=== PATIENT | female | born 1985 | race African-American/Black ===

== ENCOUNTER 2018-03-16 14:21 | Emergency (ER) | payer BC ==
[2018-03-16 16:16] LABS: Absolute Lymphocytes (CBC) 2.8 K/uL (0.7-4.9); Absolute Monocytes 0.6 K/uL (0.1-1.3); Absolute Neutrophil 6.6 K/uL (1.8-8.0); Basophils % 0.5 % (0-1.3); Lymphocytes % 27.6 % (15.3-44.8); MPV 8.2 fL (7.6-11.3); Monocytes % 5.6 % (3.3-12.3); RBC Red Blood Cell Count 4.89 M/uL (3.86-4.86)
[2018-03-16 16:18] LABS: Protime INR 0.97
[2018-03-16 16:33] LABS: ALT/SGPT 35 U/L (12-78); AST/SGOT 21 U/L (15-37); Alkaline Phosphatase 79 U/L (45-117); BUN Blood Urea Nitrogen 8 mg/dL (7-18); Bicarbonate 27 mmol/L (21-32); Bilirubin Direct 0.1 mg/dL (0-0.2); Bilirubin Total 0.4 mg/dL (0.2-1.0); Glucose Level 108 mg/dL (74-106); Magnesium 2.2 mg/dL (1.8-2.4); NT PRO-BNP 13 pg/mL (<125); Protein, Total 7.9 g/dL (6.4-8.2); Sodium Level 139 mmol/L (136-145); Troponin (Emerg Dept Use Only) < 0.02 ng/mL (0.0-0.045)
--- NOTE | 2018-03-16 16:50 | RAD REPORT ---
EXAM DESCRIPTION: RAD - Chest Single View - 03/16/2018 4:24 pm CLINICAL HISTORY: CHEST PAIN Chest pain. COMPARISON: No comparisons FINDINGS: Portable technique limits examination quality. Interstitial lung markings are mildly prominent. The heart is upper limit of normal in size. No displ aced fractures. IMPRESSION: Mild interstitial pneumonitis versus interstitial pulmonary edema.
[2018-03-16] MEDS ORDERED: POTASSIUM 25 MEQ EFFERV TAB ONE (17:06)
--- NOTE | 2018-03-16 17:22 | EDPHYS ---
Physician Documentation [facility] Name: Mine Edwards Age: 32 yrs Sex: Female : 1985 Arrival Date: 03/16/2018 Time: 14:26 Bed 28 Private MD: ED Physician [employer] Dixon HPI: 03/16 16:00 This 32 yrs old Black Female presents to ER via Ambulatory with complaints of Chest pm1 pain. 16:00 The patient or guardian reports chest pain that is located primarily in the anterior pm1 aspect of left upper chest. The pain radiates to the left arm. Associated signs and symptoms: Pertinent positives: headache, shortness of breath, Pertinent negatives: abdominal pain, cough, diaphoresis, dizziness, near syncope, palpitations, syncope. The chest pain is described as burning. Duration: The patient or guardian reports a single episode, that is still ongoing. Modifying factors: The symptoms are alleviated by nothing. the symptoms are aggravated by cough, deep breath, palpation of area. Severity of pain: in the emergency department the pain is unchanged. The patient has not experienced similar symptoms in the past. The patient has not recently seen a physician. Onset 4 weeks ago. 16:00 Associated signs and symptoms: Pertinent positives: cough, post nasal drainage. 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 - Ebola Screening: : No symptoms or risks identified at this time. ROS: 16:00 Constitutional: Negative for fever, chills, and weight loss, Eyes: Negative for injury, pm1 pain, redness, and discharge. 16:00 Neck: Negative for injury, pain, and swelling. 16:00 Abdomen/GI: Negative for abdominal pain, nausea, vomiting, diarrhea, and constipation, Back: Negative for injury and pain. 16:00 : Negative for injury, bleeding, discharge, and swelling, MS/Extremity: Negative for injury and deformity, Skin: Negative for injury, rash, and discoloration. 16:00 Neuro: Negative for headache, weakness, numbness, tingling, and seizure. 16:00 ENT: Positive for sinus congestion, post nasal drainage. 16:00 Cardiovascular: Positive for chest pain, Negative for edema, orthopnea, palpitations, paroxysmal nocturnal dyspnea. 16:00 Respiratory: Positive for cough, shortness of breath, Negative for sputum production, wheezing. Exam: 16:00 Constitutional: This is a well developed, well nourished patient who is awake, alert, pm1 and in no acute distress. Head/Face: Normocephalic, atraumatic. Eyes: Pupils equal round and reactive to light, extra-ocular motions intact. Lids and lashes normal. Conjunctiva and sclera are non-icteric and not injected. Cornea within normal limits. Periorbital areas with no swelling, redness, or edema. ENT: Nares patent. No nasal discharge, no septal abnormalities noted. Tympanic membranes are normal and external auditory canals are clear. Oropharynx with no redness, swelling, or masses, exudates, or evidence of obstruction, uvula midline. Mucous membranes moist. Neck: Trachea midline, no thyromegaly or masses palpated, and no cervical lymphadenopathy. Supple, full range of motion without nuchal rigidity, or vertebral point tenderness. No Meningismus. Cardiovascular: Regular rate and rhythm with a normal S1 and S2. No gallops, murmurs, or rubs. Normal PMI, no JVD. No pulse deficits. 16:00 Respiratory: Lungs have equal breath sounds bilaterally, clear to auscultation and percussion. No rales, rhonchi or wheezes noted. No increased work of breathing, no retractions or nasal flaring. Abdomen/GI: Soft, non-tender, with normal bowel sounds. No distension or tympany. No guarding or rebound. No evidence of tenderness throughout. Skin: Warm, dry with normal turgor. Normal color with no rashes, no lesions, and no evidence of cellulitis. MS/ Extremity: Pulses equal, no cyanosis. Neurovascular intact. Full, normal range of motion. 16:00 Chest/axilla: Inspection: normal, Palpation: tenderness, that is mild, of the anterior aspect of left upper chest, that totally reproduces the patient's complaints. 16:00 Back: normal spinal alignment noted, muscle spasm, is appreciated in the left trapezius. 16:00 Neuro: Orientation: is normal, Motor: is normal, moves all fours, Sensation: is normal, no obvious gross deficits, Gait: is steady, at a normal pace, without difficulty. Vital Signs: 15:10 BP 158 / 112; Pulse 93; Resp 18; Temp 97.8; Pulse Ox 100% on R/A; Weight 95.25 kg; ph Height 5 ft. 0 in. (152.40 cm); 17:06 BP 159 / 106; Pulse 84; Resp 18; Pulse Ox 100% on R/A; Pain 10/10; mg2 15:10 Body Mass Index 41.01 (95.25 kg, 152.40 cm) ph MDM: 15:34 Patient medically screened. pm1 17:21 Data reviewed: vital signs. Data interpreted: Pulse oximetry: on room air is 100 %. pm1 Interpretation: normal. Counseling: I had a detailed discussion with the patient and/or guardian regarding: the historical points, exam findings, and any diagnostic results supporting the discharge/admit diagnosis, lab results, radiology results, the need for outpatient follow up, to return to the emergency department if symptoms worsen or persist or if there are any questions or concerns that arise at home. 17:22 Special discussion: I have referred the patient to see his PCP for further evaluation pm1 of high blood pressure. Start taking her blood pressure medications again. 03/16 15:45 Order name: Basic Metabolic Panel; Complete Time: 16:39 pm1 03/16 15:45 Order name: CBC with Diff; Complete Time: 16:39 pm1 03/16 15:45 Order name: LFT's; Complete Time: 16:39 pm1 03/16 15:45 Order name: Magnesium; Complete Time: 16:39 pm1 03/16 15:45 Order name: NT PRO-BNP; Complete Time: 16:39 pm1 03/16 15:45 Order name: PT-INR; Complete Time: 17:02 pm1 03/16 15:45 Order name: Troponin (emerg Dept Use Only); Complete Time: 16:39 pm1 03/16 15:45 Order name: XRAY Chest (1 view); Complete Time: 17:02 pm1 03/16 15:45 Order name: EKG; Complete Time: 15:45 pm1 03/16 15:45 Order name: Cardiac monitoring; Complete Time: 15:58 pm1 03/16 15:45 Order name: EKG - Nurse/Tech; Complete Time: 15:58 pm1 03/16 15:45 Order name: IV Saline Lock; Complete Time: 15:58 pm1 03/16 15:45 Order name: Labs collected and sent; Complete Time: 15:58 pm1 03/16 15:45 Order name: O2 Per Protocol; Complete Time: 15:58 pm1 03/16 15:45 Order name: O2 Sat Monitoring; Complete Time: 15:58 pm1 Administered Medications: 17:01 Drug: Potassium Effervescent Tablet 50 mEq Route: PO; mg2 17:37 Follow up: Response: No adverse reaction mg2 17:36 Drug: TORadol 30 mg Route: IVP; Site: left antecubital; mg2 17:36 Follow up: Response: No adverse reaction; Medication administered at discharge. mg2 17:36 Drug: Rocephin 1 grams Route: IV; Rate: calculated rate; Site: left antecubital; mg2 17:36 Follow up: Response: No adverse reaction; Medication administered at discharge.; IV mg2 Status: Completed infusion Disposition: 03/16/18 17:22 Discharged to Home. Impression: Pneumonitis, Chest pain, unspecified. - Condition is Stable. - Discharge Instructions: Nonspecific Chest Pain, Hypertension, How to Take Your Blood Pressure, [id number], Pneumonitis, Managing Your Hypertension. - Prescriptions for Naprosyn 500 mg Oral Tablet - take 1 tablet by ORAL route 2 times per day As needed take with food; 30 tablet. Zithromax Z- Rei 250 mg Oral Tablet - take 1 tablet by ORAL route as directed for 5 days Day 1 - take two (2) tablets one time. Day 2, 3, 4 , 5 take one (1) tablet once daily.; 6 tablet. - Medication Reconciliation Form, Thank You Letter, Antibiotic Education, Prescription Opioid Use form. - Follow up: Emergency Department; When: As needed; Reason: Worsening of condition. Follow up: Private Physician; When: 2 - 3 days; Reason: Recheck today's complaints, Continuance of care, Re-evaluation by your physician. - Problem is new. - Symptoms have improved. Addendum: 03/18/2018 15:31 Co-signature as Attending Physician, Felix merlos a2 Signatures: Dispatcher [employer] Romana Barros RN RN ph Adarsh Mcadams, SPEECH THERAPY DIRECTOR SPEECH THERAPY DIRECTOR pm1 Felix Dixon MD MD ma2 Tin Redmond, RN RN mg2 Corrections: (The following items were deleted from the chart) 03/16 17:38 17:22 03/16/2018 17:22 Discharged to Home. Impression: Pneumonitis; Chest pain, mg2 unspecified. Condition is Stable. Discharge Instructions: Pneumonitis. Forms are Medication Reconciliation Form, Thank You Letter, Antibiotic Education, Prescription Opioid Use. Follow up: Emergency Department; When: As needed; Reason: Worsening of condition. Follow up: Private Physician; When: 2 - 3 days; Reason: Recheck today's complaints, Continuance of care, Re-evaluation by your physician. Problem is new. Symptoms have improved. pm1
--- NOTE | 2018-03-16 17:22 | ER ---
Nurse's Notes [facility] Name: Mine Edwards Age: 32 yrs Sex: Female : 1985 Arrival Date: 03/16/2018 Time: 14:26 Bed 28 Private MD: Diagnosis: Pneumonitis;Chest pain, unspecified Presentation: 03/16 15:06 Presenting complaint: Patient states: Intermittent chest pain and SOB x 4 weeks after ph having flu-like symptoms, today started having L arm pain and chest pain that radiated to back along w/ headache, nausea, and SOB. Transition of care: patient was not received from another setting of care. Onset of symptoms was March 16, 2018. Risk Assessment: Do you want to hurt yourself or someone else? Patient reports no desire to harm self or others. Initial Sepsis Screen: Does the patient meet any 2 criteria? No. Patient's initial sepsis screen is negative. Does the patient have a suspected source of infection? No. Patient's initial sepsis screen is negative. Care prior to arrival: None. 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 - Ebola Screening: : No symptoms or risks identified at this time. Screenin:30 Abuse screen: Denies threats or abuse. Denies injuries from another. Nutritional mg2 screening: No deficits noted. Tuberculosis screening: No symptoms or risk factors identified. 15:31 Fall Risk None identified. mg2 Assessment: 15:29 General: Appears in no apparent distress. comfortable, Behavior is calm, cooperative. mg2 Pain: Complains of pain in chest Pain radiates to back and left arm Pain currently is 10 out of 10 on a pain scale. Quality of pain is described as aching, Pain began gradually, Is intermittent. Neuro: Level of Consciousness is awake, alert, obeys commands, Oriented to person, place, time, situation. Cardiovascular: Reports chest pain, shortness of breath, Capillary refill < 3 seconds Patient's skin is warm and dry. Respiratory: Airway is patent Respiratory effort is Respiratory pattern is regular, symmetrical. GI: No signs and/or symptoms were reported involving the gastrointestinal system. : No signs and/or symptoms were reported regarding the genitourinary system. EENT: No signs and/or symptoms were reported regarding the EENT system. Derm: Skin is intact, is healthy with good turgor, Skin is pink, warm \T\ dry. normal. Musculoskeletal: No signs and/or symptoms reported regarding the musculoskeletal system. Vital Signs: 15:10 BP 158 / 112; Pulse 93; Resp 18; Temp 97.8; Pulse Ox 100% on R/A; Weight 95.25 kg; ph Height 5 ft. 0 in. (152.40 cm); 17:06 BP 159 / 106; Pulse 84; Resp 18; Pulse Ox 100% on R/A; Pain 10/10; mg2 15:10 Body Mass Index 41.01 (95.25 kg, 152.40 cm) ph ED Course: 14:26 Patient arrived in ED. mr 15:09 Triage completed. ph 15:11 Arm band placed on. ph 15:16 Adarsh Mcadams NP is PHCP. pm1 15:16 Felix Dixon MD is Attending Physician. pm1 15:17 Tin Redmond, SHAAN is Primary Nurse. mg2 15:30 No provider procedures requiring assistance completed. mg2 15:31 Patient has correct armband on for positive identification. Pulse ox on. NIBP on. Door mg2 closed. 15:55 Inserted saline lock: 22 gauge in left antecubital area, using aseptic technique. Blood jp3 collected. 15:55 Initial lab(s) drawn, by hi, sent to lab. jp3 16:01 EKG done, by cmm technician. reviewed by Adarsh Mcadams NP. sm3 16:03 Basic Metabolic Panel Sent. jp3 16:03 CBC with Diff Sent. jp3 16:03 LFT's Sent. jp3 16:03 Magnesium Sent. jp3 16:03 PT-INR Sent. jp3 16:03 NT PRO-BNP Sent. jp3 16:04 Troponin (emerg Dept Use Only) Sent. jp3 16:24 XRAY Chest (1 view) In Process Unspecified. EDMS 17:38 IV discontinued, intact, bleeding controlled, No redness/swelling at site. Pressure mg2 dressing applied. Administered Medications: 17:01 Drug: Potassium Effervescent Tablet 50 mEq Route: PO; mg2 17:37 Follow up: Response: No adverse reaction mg2 17:36 Drug: TORadol 30 mg Route: IVP; Site: left antecubital; mg2 17:36 Follow up: Response: No adverse reaction; Medication administered at discharge. mg2 17:36 Drug: Rocephin 1 grams Route: IV; Rate: calculated rate; Site: left antecubital; mg2 17:36 Follow up: Response: No adverse reaction; Medication administered at discharge.; IV mg2 Status: Completed infusion Outcome: 17:22 Discharge ordered by . pm1 17:38 Discharged to home ambulatory. mg2 17:38 Condition: stable 17:38 Discharge instructions given to patient, Instructed on discharge instructions, follow up and referral plans. medication usage, Demonstrated understanding of instructions, follow-up care, medications, Prescriptions given X 2. 17:38 Patient left the ED. mg2 Signatures: Dispatcher [employer] EDMA Naila Burnett Patricia, RN RN ph Marinas, Patrick, NP [employer] CLAMPER pm1 Tin Redmond RN RN [facility] [place] Radha Nicolas 3 Gt Tijerina 3
[2018-03-16] MEDS ORDERED: KETOROLAC 30 MG/ML INJ ONE (17:34)
[2018-03-16] MEDS ORDERED: CEFTRIAXONE/SWI 1gm 1 GM/10 ML SYR ONE (17:34)
--- NOTE | 2018-03-17 06:54 | EKG ---
Test Date: 2018-03-16 Test Time: 15:27:23 Setter Induction Heating Equipment: BERNADETTE MEASUREMENT RESULTS: Intervals: Rate: 89 WY: 140 QRSD: 88 QT: 360 QTc: 438 [place]: P: 50 WY: 140 QRS: 79 T: 33 INTERPRETIVE STATEMENTS: Normal sinus rhythm Normal ECG No previous ECG available for comparison Electronically Signed On 03-17-18 06:53:40 [employer] by Rakesh Fernandez
== END 2018-03-16 17:38 | disposition home or self-care (01) ==
LOC: ER 14:21
DX: J18.9 Pneumonia, unspecified organism (principal)
CPT/HCPCS: 36415; 71045; 80048; 80076; 83735; 83880; 84484; 85025; 85610; 93005; 96374; 96375; 99284; J0696